=== PATIENT | male | born 1995 | race Caucasian/White ===

== ENCOUNTER 2024-08-02 07:45 | Outpatient (CLI) | payer BC | END 2024-08-02 07:46 | disposition home or self-care (01) | LOC: ULT 07:45 | PROVIDERS: ATTEND Physician Assistant | DX: K76.0 Fatty (change of) liver, not elsewhere classified (principal); K76.89 Other specified diseases of liver; Z87.19 Personal history of other diseases of the digestive system | CPT/HCPCS: 76705 ==